=== PATIENT | female | born 1990 ===

== ENCOUNTER → 2018-05-16 | Outpatient (REF) | payer SELFPAY ==
[2018-05-16 11:28] LABS: PLATELET COUNT, AUTOMATED 231 K/uL (150-450)
== END ==
PROVIDERS: ATTEND Nurse Practitioner Family
DX: R10.10 Upper abdominal pain, unspecified (principal); R11.0 Nausea; R14.0 Abdominal distension (gaseous)
CPT/HCPCS: 82040; 82150; 82247; 82310; 82374; 82435; 82565; 82947; 83690; 84075; 84132; 84155; 84295; 84450; 84460; 84520; 85025